=== PATIENT | male | born 1975 | race Caucasian/White ===

== ENCOUNTER 2020-01-16 05:39 | Emergency (ER) | payer MEDICAID ==
[~2020-01-16] VITALS: Ht 167.6 cm; Wt 90.7 kg
[2020-01-16 05:52] VITALS: BP_SYST 144
--- NOTE | 2020-01-16 05:59 | NUR ---
Patient to ER bed 04 to gown for evaluation. Side rails up.
--- NOTE | 2020-01-16 06:00 | NUR ---
PATIENT BROUGHT IN COMPLAINING OF SUDDEN ACUTE ONSET SHARP RIGHT LOWER TOOTH PAIN STARTING AT 0500. PAIN 8/10. PATIENT REPORTS TAKING IBUPROFEN 200 MG AND TYLENOL 1 GM PO ONE HOUR PRIOR TO ARRIVAL. NO OTHER COMPLAINTS/INJURIES PER PATIENT OR NOTED. WILL CONTINUE TO MONITOR.
--- NOTE | 2020-01-16 06:16 | NUR ---
ER Dr. CALZADA at bedside examining patient.
[2020-01-16] MEDS ORDERED: HYDROcodone/ACETAMIN 5-325 MG TAB (NORCO/ VICODIN) PO ONE (06:30)
[2020-01-16] MEDS ORDERED: IBUPROFEN 800 MG TABLET PO ONE (06:30)
[2020-01-16 06:45] VITALS: BP_SYST 144
--- NOTE | 2020-01-16 06:45 | NUR ---
Patient given written and verbal discharge instructions and verbalizes understanding. ER MD discussed with patient the results and treatment provided. Patient in stable condition. ID arm band removed. NO IV Rx of NORCO, IBUPROFEN given. Patient educated on pain management and to follow up with PMD. Pain Scale 2/10. Opportunity for questions provided and answered. Medication side effect fact sheet provided.
== END 2020-01-16 06:45 | disposition home or self-care (01) ==
LOC: SED 05:39
DX: K02.9 Dental caries, unspecified (principal); K08.89 Other specified disorders of teeth and supporting structures
CPT/HCPCS: 99283

== ENCOUNTER 2022-03-22 18:36 | Emergency (ER) | payer MEDICAID ==
[~2022-03-22] VITALS: Ht 170.2 cm; Wt 95.3 kg
[2022-03-22 18:53] VITALS: BP_SYST 191
[2022-03-22] MEDS ORDERED: cefTRIAXone 1 GM VIAL IM ONE (19:30)
[2022-03-22] MEDS ORDERED: IBUPROFEN 800 MG TABLET PO ONE (19:30)
[2022-03-22] MEDS ORDERED: IBUP-1969 PO (19:34)
[2022-03-22] MEDS ORDERED: CEPH-548 PO (19:34)
[2022-03-22] MEDS ORDERED: LIDOCAINE 1% 10 MG/ML, 20 ML MDV INJ ONE (19:45)
[2022-03-22 19:59] VITALS: BP_SYST 156
== END 2022-03-22 20:01 | disposition home or self-care (01) ==
LOC: SED 18:36
DX: S00.462A Insect bite (nonvenomous) of left ear, initial encounter (principal); H60.12 Cellulitis of left external ear; I10 Essential (primary) hypertension; Z79.899 Other long term (current) drug therapy; W57.XXXA Bitten or stung by nonvenomous insect and other nonvenomous arthropods, initial encounter; Y93.89 Activity, other specified; Y92.89 Other specified places as the place of occurrence of the external cause; Y99.8 Other external cause status
CPT/HCPCS: 99283; 96372; J0696; J2001

== ENCOUNTER 2023-01-10 11:26 | Emergency (ER) | payer MEDICAID ==
[~2023-01-10] VITALS: Ht 170.2 cm; Wt 90.7 kg
[~2023-01-10 11:26] MED LIST: CEPH-548 PO; IBUP-1969 PO
[2023-01-10 11:31] VITALS: BP_SYST 140; PULSE 62; RESP 20; TEMP 98.3; O2SAT 97
[2023-01-10] MEDS ORDERED: HYDROcodone/ACETAMIN 7.5-325 MG TAB PO ONE (11:45)
[2023-01-10] MEDS ORDERED: IBUPROFEN 800 MG TABLET PO ONE (11:45)
[2023-01-10 11:55] LABS: BASOPHILS # (AUTO) 0.1 K/uL (0.0-0.2); BASOPHILS % (AUTO) 1.3 % (0.0-2.0); EOSINOPHILS # (AUTO) 0.2 K/uL (0.0-0.4); EOSINOPHILS % (AUTO) 4.7 % (0.0-4.0); HEMOGLOBIN 13.9 g/dL (14.0-18.0); LYMPHOCYTES # (AUTO) 2.3 K/uL (1.0-5.5); MEAN CORPUSCULAR HEMOGLOBIN 30 pg (27-31); MEAN CORPUSCULAR HGB CONC 33 % (32-36); MEAN CORPUSCULAR VOLUME 91 fL (79.0-98.0); MONOCYTES # (AUTO) 0.4 K/uL (0.0-1.0); MONOCYTES % (AUTO) 8.1 % (1.7-9.3); NEUTROPHILS # (AUTO) 2.2 K/uL (1.8-7.7); NEUTROPHILS % (AUTO) 41.9 % (40.0-70.0); PLATELET COUNT (AUTO) 211 K/uL (130-430); RED BLOOD CELL COUNT(AUTO) 4.61 MIL/uL (4.2-6.2); RED CELL DISTRIBUTION WIDTH 13.1 % (9.0-15.0); WHITE BLOOD COUNT (AUTO) 5.2 K/uL (4.8-10.8)
[2023-01-10 11:57] LABS: ERYTHROCYTE SEDIMENTATION RATE 12 MM/HR (0-15)
[2023-01-10 12:10] LABS: CALCIUM 9.3 mg/dL (8.4-11.0); CREATININE 0.82 mg/dL (0.55-1.30); POTASSIUM 3.9 mmol/L (3.5-5.1)
[2023-01-10 12:14] LABS: PROTHROMBIN TIME 10.8 SECS (9.5-12.5)
[2023-01-10 12:25] LABS: ALBUMIN 3.8 g/dL (3.4-4.8); TOTAL BILIRUBIN 0.6 mg/dL (0.0-1.0); TOTAL PROTEIN, SERUM 7.8 g/dL (6.4-8.3)
[2023-01-10] MEDS ORDERED: TRAM50TA2 PO (13:29)
[2023-01-10] MEDS ORDERED: IBUP-1971 PO (13:29)
[2023-01-10] MEDS ORDERED: DIPHENHYDRAMINE INJ 50 MG/ML VIAL IVP ONE (13:45)
[2023-01-10] MEDS ORDERED: METOCLOPRAMIDE HCL 10 MG/2 ML VIAL IVP ONE (13:45)
[2023-01-10 16:41] VITALS: BP_SYST 140; PULSE 62; RESP 20; TEMP 98.3; O2SAT 97
== END 2023-01-10 14:53 | disposition home or self-care (01) ==
LOC: SED 11:26
DX: R51.9 Headache, unspecified (principal); I10 Essential (primary) hypertension; R11.0 Nausea; Z79.899 Other long term (current) drug therapy
CPT/HCPCS: 99285; 96374; 70450; 96375; 80053; 85025; 85610; 85651; 85730; 36415; 76376; 82397; J1200; J2765

== ENCOUNTER 2023-01-31 00:10 | Emergency (ER) | payer MEDICAID ==
[~2023-01-31] VITALS: Ht 170.2 cm; Wt 95.3 kg
[~2023-01-31 00:10] MED LIST changes: +IBUP-1971 PO; +TRAM50TA2 PO
[2023-01-31 00:14] VITALS: BP_SYST 158; PULSE 56; RESP 20; TEMP 98.3; O2SAT 100
[2023-01-31] MEDS ORDERED: LOSA100T24 PO (00:25)
== END 2023-01-31 00:45 | disposition left against medical advice (07) ==
LOC: SED 00:10
DX: R07.89 Other chest pain (principal); Z53.21 Procedure and treatment not carried out due to patient leaving prior to being seen by health care provider
CPT/HCPCS: 99281

== ENCOUNTER 2023-06-04 23:12 | Inpatient (IN) | payer MEDICAID ==
[~2023-06-04] VITALS: Ht 170.2 cm; Wt 99.5 kg
[~2023-06-04 23:12] MED LIST changes: +LOSA100T24 PO
[2023-06-04 23:24] VITALS: BP_SYST 147; PULSE 60; RESP 18; TEMP 96.8; O2SAT 98
[2023-06-05] MEDS: NITROGLYCERIN 1 INCH (GM) OINT. TP ONE (01:55)
[2023-06-05] MEDS: MORPHINE 4 MG INJ. 4 MG/ML VIAL IVP ONE (01:56)
[2023-06-05] MEDS: ENALAPRILAT DIHYDRATE 1.25 MG/ML VIAL IVP ONE (01:57)
[2023-06-05 02:22] LABS: BASOPHILS # (AUTO) 0.1 K/uL (0.0-0.2); BASOPHILS % (AUTO) 0.9 % (0.0-2.0); EOSINOPHILS # (AUTO) 0.4 K/uL (0.0-0.4); HEMATOCRIT 37.8 % (36-54); HEMOGLOBIN 13.1 g/dL (14.0-18.0); LYMPHOCYTES # (AUTO) 3.4 K/uL (1.0-5.5); LYMPHOCYTES % (AUTO) 42.4 % (20.5-51.5); MEAN CORPUSCULAR HEMOGLOBIN 31 pg (27-31); MEAN CORPUSCULAR HGB CONC 35 % (32-36); MEAN CORPUSCULAR VOLUME 91 fL (79.0-98.0); MONOCYTES # (AUTO) 0.7 K/uL (0.0-1.0); MONOCYTES % (AUTO) 9.3 % (1.7-9.3); NEUTROPHILS # (AUTO) 3.4 K/uL (1.8-7.7); NEUTROPHILS % (AUTO) 42.4 % (40.0-70.0); PLATELET COUNT (AUTO) 201 K/uL (130-430); RED BLOOD CELL COUNT(AUTO) 4.17 MIL/uL (4.2-6.2); RED CELL DISTRIBUTION WIDTH 13.6 % (9.0-15.0); WHITE BLOOD COUNT (AUTO) 8.1 K/uL (4.8-10.8)
[2023-06-05 02:29] LABS: ALANINE AMINOTRANSFERASE 28 U/L (12-78); ALBUMIN 3.6 g/dL (3.4-4.8); ANION GAP 5 (5-15); ASPARTATE AMINOTRANSFERASE 16 U/L (10-37); CARBON DIOXIDE 30 mmol/L (23-29); CHLORIDE 104 mmol/L (98-107); CREATININE 1.16 mg/dL (0.55-1.30); GFR AFRICAN AMERICAN 86 mL/min (>90); GLUCOSE 96 mg/dL (74-106); POTASSIUM 3.9 mmol/L (3.5-5.1); SODIUM SERUM 139 mmol/L (136-145); TOTAL BILIRUBIN 0.5 mg/dL (0.0-1.0); TOTAL PROTEIN, SERUM 7.5 g/dL (6.4-8.3); UREA NITROGEN, BLOOD 26 mg/dL (8-21)
[2023-06-05 02:32] LABS: BILIRUBIN,DIRECT 0.1 mg/dL (0.0-0.3); GFR NON AFRICAN-AMERICAN 71 mL/min (>90)
[2023-06-05] MEDS ORDERED: LOSA-413 PO (04:12)
[2023-06-05 08:05] VITALS: BP_SYST 126; PULSE 52; RESP 18; TEMP 97.2; O2SAT 98
[2023-06-05] MEDS ORDERED: COMMUNICATION ORDER XX ONE (08:30)
[2023-06-05 09:34] VITALS: BP_SYST 126; PULSE 52; RESP 18; TEMP 97.2
[2023-06-05 10:07] VITALS: O2SAT 98
[2023-06-05] MEDS ORDERED: LORazepam 2 MG/ML VIAL IVP PRN (11:00)
[2023-06-05] MEDS ORDERED: IBUPROFEN 800 MG TABLET PO PRN (11:00)
[2023-06-05] MEDS ORDERED: IBUPROFEN 600 MG TABLET PO PRN (11:00)
[2023-06-05] MEDS ORDERED: ONDANSETRON HCL 4 MG/2 ML VIAL IVP PRN (11:00)
[2023-06-05] MEDS ORDERED: traMADol HCL HCL 50 MG TABLET (ULTRAM) PO PRN (11:00)
[2023-06-05] MEDS ORDERED: cephALEXin 500 MG CAPSULE PO SCH (13:00)
[2023-06-05] MEDS: LOSARTAN POTASSIUM 50 MG TABLET (COZAAR) PO ONE (13:07)
[2023-06-05] MEDS: NORMAL SALINE 5 ML DISP.SYRIN IVF SCH (13:09)
[2023-06-05 15:43] LABS: THYROID STIMULATING HORMONE 0.67 uIu/mL (0.36-3.74)
[2023-06-05 16:00] VITALS: BP_SYST 131; PULSE 59; RESP 18; TEMP 97.6; O2SAT 97
[2023-06-05 16:57] VITALS: BP_SYST 136; PULSE 77; RESP 20; TEMP 98.2; O2SAT 98
[2023-06-05] MEDS: ACETAMINOPHEN 325 MG TABLET PO PRN (17:40)
[2023-06-05 20:18] VITALS: BP_SYST 136; PULSE 65; RESP 18; TEMP 97.8; O2SAT 98
[2023-06-06] MEDS ORDERED: LOSARTAN POTASSIUM 50 MG TABLET (COZAAR) PO SCH ×2 (09:00)
== END 2023-06-05 18:45 | disposition home health service (06) | DRG 198 ==
LOC: SED 23:12 → STU 06-05 03:50
PROVIDERS: ADMIT Preventive Medicine Preventive Medicine/Occupational Environmental Medicine; ATTEND Preventive Medicine Preventive Medicine/Occupational Environmental Medicine
DX: I20.9 Angina pectoris, unspecified (principal); D64.9 Anemia, unspecified; R07.89 Other chest pain; I10 Essential (primary) hypertension; Z79.899 Other long term (current) drug therapy; R79.89 Other specified abnormal findings of blood chemistry
CPT/HCPCS: 36415; 71045; 80048; 80076; 83880; 84443; 84484; 85025; 85379; 93005; 93306; 96374; 96375; 99285; G0378; J2270